=== PATIENT | male | born 1990 | race Caucasian/White ===

== ENCOUNTER → 2021-09-27 | Outpatient (CLI) | payer BC | END | disposition home or self-care (01) | LOC: LABWHC1 16:16 | PROVIDERS: ATTEND Obstetrics & Gynecology Obstetrics | DX: Z31.441 Encounter for testing of male partner of patient with recurrent pregnancy loss (principal) | CPT/HCPCS: 36415 ==

== ENCOUNTER → 2021-11-24 | Outpatient (CLI) | payer BC ==
--- NOTE | 2021-11-24 15:31 | MR ---
EXAMINATION TYPE: MR shoulder LT wo con DATE OF EXAM: 11/24/2021 COMPARISON: Radiographs 11/07/2021 HISTORY: 31-year-old male M25.512, Left shoulder pain and limited movement for 11 years. TECHNIQUE: Multiplanar, multisequence imaging of the left shoulder is performed without contrast. FINDINGS: There is some minimal intrinsic signal within the intracapsular portion of the long head biceps tendo n. Mild fluid along the bicipital groove. The majority of the subscapularis tendon appears intact. Borderline thickening of the coracohumeral ligament at 3 mm with some strandy soft tissue signal inte nsity in the rotator cuff interval. No abnormal thickening of the axillary recess. There is mild degenerative change at the AC joint with a mild capsular edema and minimal subchondral edema. No significant marginal spurring. No significant mass effect on the underlying myotendinous ju nction of the supraspinatus. No significant distention or thickening of the subacromial/subdeltoid bursa. Both supraspinatus and infraspinatus tendons are intact. No rotator cuff muscle atrophy. The glenohumeral joint is intact. No significant joint effusion. No discrete labral tear given on the radiographic technique and no para labral cyst. No Hill-Sachs deformity or os acromiale. No suspicious bone marrow replacement. IMPRESSION: 1. Some intracapsular long head biceps tendinosis. There is borderline thickening of the coracohumera l ligament just adjacent and some strandy soft tissue signal in the rotator cuff interval. Findings m ay reflect sequela of prior biceps emma sprain. Fluid along the bicipital groove may be physiologic or could reflect a corresponding mild long head biceps tenosynovitis. 2. Mild, early degenerative change at the AC joint. 3. No labral or rotator cuff tear is seen.
== END | disposition home or self-care (01) ==
LOC: RADMRIMAIN 13:47
PROVIDERS: ATTEND Orthopaedic Surgery
DX: M19.012 Primary osteoarthritis, left shoulder (principal)

== ENCOUNTER 2022-09-26 23:04 | Observation (INO) | payer BC ==
[2022-09-27 00:12] LABS: Appearance,Urine Clear (Clear); Bilirubin,Urine Negative (Negative); Blood,Urine Negative (Negative); Color,Urine Yellow; Glucose,Urine (UA) Negative (Negative); Ketones,Urine Negative (Negative); Leukocyte Esterase,Urine Negative (Negative); Nitrite,Urine Negative (Negative); PH, Urine 6.5 (5.0-8.0); Protein,Urine Negative (Negative); Specific Gravity,Urine 1.027 (1.001-1.035); Urobilinogen,Urine <2.0 mg/dL (<2.0)
[2022-09-27] MEDS ORDERED: KETOROLAC 15 MG/ML 1 ML VIAL IVP STA (00:22)
[2022-09-27] MEDS ORDERED: SODIUM CHLORIDE 0.9% 1,000 ML IV STA ×2 (00:22→02:23)
[2022-09-27 00:49] LABS: Basophils % (A) 0 %; Eosinophils # (A) 0.1 k/uL (0-0.7); Eosinophils % (A) 1 %; HCT 44.9 % (39.0-53.0); HGB 15.1 gm/dL (13.0-17.5); Lymphocytes % (A) 16 %; MCHC 33.6 g/dL (31.0-37.0); MCV 86.3 fL (80.0-100.0); Monocytes # (A) 0.7 k/uL (0-1.0); Monocytes % (A) 6 %; Neutrophils # (A) 9.5 k/uL (1.3-7.7); Neutrophils % (A) 77 %; Platelet Count 285 k/uL (150-450); RDW 11.9 % (11.5-15.5); WBC 12.4 k/uL (3.8-10.6)
[2022-09-27 01:04] LABS: INR 0.9 (<1.2); Partial Thromboplastin Time 28.4 sec (22.0-30.0); Prothrombin Time 9.7 sec (9.0-12.0)
[2022-09-27 01:16] LABS: ALT 54 U/L (4-49); AST 35 U/L (17-59); African American GFR (CKD) >90 (>60 ml/min/1.73 sqM); Albumin 4.3 g/dL (3.5-5.0); Alkaline Phosphatase 68 U/L (38-126); Amylase 41 U/L (30-110); Anion Gap 10 mmol/L; Blood Urea Nitrogen 19 mg/dL (9-20); Carbon Dioxide 26 mmol/L (22-30); Chloride 103 mmol/L (98-107); Glucose 99 mg/dL (74-99); Lipase 36 U/L (23-300); Non-African American GFR(CKD) >90 (>60 ml/min/1.73 sqM); Potassium 3.8 mmol/L (3.5-5.1); Sodium 139 mmol/L (137-145); Total Bilirubin 0.5 mg/dL (0.2-1.3); Total Protein 7.1 g/dL (6.3-8.2)
--- NOTE | 2022-09-27 01:17 | US ---
EXAM: US Retroperitoneal Limited, Renal CLINICAL HISTORY: Right flank pain TECHNIQUE: Real-time limited ultrasound of the retroperitoneum with image documentation. COMPARISON: No relevant prior studies available. FINDINGS: Right kidney: The right kidney measures 10.1 x 5.2 x 4.8 cm. No hydronephrosis or nephrolithiasis. There is an ovoid hyperechoic area involving the midpole of the right kidney measuring 1.5 x 1.5 x 0.8 cm. Left kidney: The left kidney measures 11.7 x 6.1 x 5.4 cm. No stones. No hydronephrosis. Bladder: The bladder is mildly filled without bladder wall thickening or bladder stones. IMPRESSION: 1. No nephrolithiasis or hydronephrosis identified bilaterally. 2. Presumed incidental ovoid hyperechoic area involving the midpole of the right kidney, as detailed above. 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 Rarely, alternate solid renal lesions may appear hyperechoic. Nonemergent CT evaluation is recommended for further analysis, if not previously evaluated.
--- NOTE | 2022-09-27 01:50 | ED ---
General Adult HPI - General Chief complaint: Abdominal Pain Stated complaint: possible appendicitus Time Seen by Provider: 09/27/22 00:07 Source: patient, RN notes reviewed, old records reviewed Mode of arrival: ambulatory Limitations: no limitations - History of Present Illness Initial comments: Patient is a 32-year-old male with past medical history that is unremarkable who presents emergency Department with right lower quadrant abdominal pain. Since being in his right flank. Sudden onset earlier today. Worse with movement. Denies nausea, vomiting, urinary complaints. Denies any diarrhea. Denies fevers, chest pain, shortness of breath. No other acute complaints at this time. No prior abdominal surgeries. Presents for further evaluation at this time. - Related Data Allergies Allergy/AdvReac Type Severity Reaction Status Date / Time No Known Allergies Allergy Verified 09/26/22 23:14 Review of Systems ROS Statement: Those systems with pertinent positive or pertinent negative responses have been documented in the HPI. Review of Systems: CONST: Denies fever EYES: Denies blurry vision ENT: Denies nasal congestion C/V: Denies Chest pain RESP: Denies shortness of breath GI: Endorses abdominal pain : Denies dysuria SKIN: Denies rash. MSK: Denies joint pain. NEURO: Denies headache ROS Other: All systems not noted in ROS Statement are negative. Past Medical History Past Medical History: No Reported History History of Any Multi-Drug Resistant Organisms: None Reported Past Surgical History: No Surgical Hx Reported Past Psychological History: No Psychological Hx Reported Smoking Status: Never smoker Past Alcohol Use History: Rare Past Drug Use History: None Reported General Exam - General Exam Comments Initial Comments: General: Appears in no acute distress. HEAD: Normal with no signs of head trauma. EYES: PERRLA, EOMI, conjunctiva normal, no discharge. ENT: Hearing grossly intact, normal oropharynx. RESPIRATORY: Clear breath sounds bilaterally. No wheezes, rales, or rhonchi. C/V: Regular rate and rhythm. S1 and S2 auscultated, no edema, peripheral pulses 2+ and intact throughout ABD: Abdomen is soft, nondistended. Tender to palpation in the right flank, mild tenderness in the right lower quadrant. No guarding. No peritoneal signs. No CVA tenderness to percussion. EXT: Normal range of motion, no obvious deformity SKIN: No rashes or lesions observed on exposed skin. NEURO: Alert and oriented 4. Limitations: no limitations Course Vital Signs 09/26/22 23:15 Temperature 98.2 F Pulse Rate 89 Respiratory 18 Rate Blood Pressure 139/87 O2 Sat by Pulse 98 Oximetry Medical Decision Making - Medical Decision Making Was pt. sent in by a medical professional or institution (, PA, MEDICAL SCREENER, urgent care, hospital, or custodial...) When possible be specific @ -No Did you speak to anyone other than the patient for history (EMS, parent, family, police, friend...)? What history was obtained from this source @ -No Did you review nursing and triage notes (agree or disagree)? Why? @ -I reviewed and agree with nursing and triage notes Were old charts reviewed (outside hosp., previous admission, EMS record, old EKG, old radiological studies, urgent care reports/EKG's, custodial records)? Report findings @ -No old charts were reviewed Differential Diagnosis (chest pain, altered mental status, abdominal pain women, abdominal pain men, vaginal bleeding, weakness, fever, dyspnea, syncope, headache, dizziness, GI bleed, back pain, seizure, CVA, palpatations, mental health, musculoskeletal)? @ -Differential Abdominal Pain Men: Appendicitis, cholecystitis, diverticulosis, ischemic bowel, pancreatitis, hepatitis, UTI, gastroenteritis, AAA, incarcerated hernia, bowel obstruction, constipation, inflammatory bowel, hepatitis, peptic ulcer disease, splenic i nfarction, perforated viscus, testicular torsion, this is not meant to be an all-inclusive list EKG interpreted by me (3pts min.). @ -As above X-rays interpreted by me (1pt min.). @ -None done CT interpreted by me (1pt min.). @ -CT shows findings consistent with the right-sided kidney mass which radiology is reading as a benign angiomamyolipoma. Patient also has an enlarged appendix, concerning for possible early appendicitis. U/S interpreted by me (1pt. min.). @ -Interpreted by radiology. Ultrasound of the bladder and kidneys unremarkable for hydronephrosis. Does show findings concerning for a possible mass on the right kidney. Recommend CT eval for further evaluation. What testing was considered but not performed or refused? (CT, X-rays, U/S, labs)? Why? @ -None What meds were considered but not given or refused? Why? @ -None Did you discuss the management of the patient with other professionals (professionals i.e. DrRaymond, PA, MEDICAL SCREENER, lab, RT, psych nurse, director social, phys therapist, teacher, commercial escrow officer, classification case manager)? Give summary @ -I spoke with Dr. Nettles who accepted the patient onto her service. Patient will be admitted to observation. Was smoking cessation discussed for >3mins.? @ -No Was critical care preformed (if so, how long)? @ -No Were there social determinants of health that impacted care today? How? (Ho melessness, low income, unemployed, alcoholism, drug addiction, transportation, low edu. Level, literacy, decrease access to med. care, skilled nursing, rehab)? @ -No Was there de-escalation of care discussed even if they declined (Discuss DNR or withdrawal of care, Hospice)? DNR status @ -No What co-morbidities impacted this encounter? (DM, HTN, Smoking, COPD, CAD, Cancer, CVA, ARF, Chemo, Hep., AIDS, mental health diagnosis, sleep apnea, morbid obesity)? @ -None Was patient admitted / discharged? Hospital course, mention meds given and route, prescriptions, significant lab abnormalities, going to OR and other pertinent info. @ -Based on the patient's presentation and physical exam, concern for an acute intra-abdominal process for his current symptoms. We will obtain abdominal labs as well as an ultrasound start. He'll be symptomatically treated with IV fluids and Toradol. He was in agreement this plan. Ultrasound shows a incidental kidney mass another findings. Patient's labs are remarkable for mild leukocytosis of 12.4. Remainder labs are within acceptable limits. I updated the patient. He is still having pain. At this time we did agree to obtain a CT on pelvis. He was in agreement this plan. Declines additional pain medications at this time. CT reveals the diagnosis of angiomyolipoma. Also concerning for early appendicitis. I gave the patient. At this time he was made nothing by mouth, started on empiric antibiotics. We will admit him for monitoring and evaluation by surgery. I did discuss the case with on-call surgery Dr. Nettles who accepted the patient. Patient was in agreement with this plan. Undiagnosed new problem with uncertain prognosis? @ -No Drug Therapy requiring intensive monitoring for toxicity (Heparin, Nitro, Insulin, Cardizem)? @ -No Were any procedures done? @ -No Diagnosis/symptom? @ -Abdominal pain, concern for appendicitis Acute, or Chronic, or Acute on Chronic? @ -Acute Uncomplicated (without systemic symptoms) or Complicated (systemic symptoms)? @ -Complicated Side effects of treatment? @ -none Exacerbation, Progression, or Severe Exacerbation] @ -no Poses a threat to life or bodily function? @ -Yes, if the infection worsens can result in significant morbidity and mortality. Diagnosis/symptom? @ -Right renal angiomyolipoma Acute, or Chronic, or Acute on Chronic? @ -Acute Uncomplicated (without systemic symptoms) or Complicated (systemic symptoms)? @ -Uncomplicated Side effects of treatment? @ -none Exacerbation, Progression, or Severe Exacerbation] @ -no Poses a threat to life or bodily function? @ -no - Lab Data Result diagrams: 09/27/22 00:30 09/27/22 00:30 Lab Results 09/26/22 09/27/22 09/27/22 Range/Units 23:56 00:30 00:30 WBC 12.4 H (3.8-10.6) k/uL RBC 5.20 (4.30-5.90) m/uL Hgb 15.1 (13.0-17.5) gm/dL Hct 44.9 (39.0-53.0) % MCV 86.3 (80.0-100.0) fL MCH 29.0 (25.0-35.0) pg MCHC 33.6 (31.0-37.0) g/dL RDW 11.9 (11.5-15.5) % Plt Count 285 (150-450) k/uL MPV 7.0 Neutrophils % 77 % Lymphocytes % 16 % Monocytes % 6 % Eosinophils % 1 % Basophils % 0 % Neutrophils # 9.5 H (1.3-7.7) k/uL Lymphocytes # 2.0 (1.0-4.8) k/uL Monocytes # 0.7 (0-1.0) k/uL Eosinophils # 0.1 (0-0.7) k/uL Basophils # 0.0 (0-0.2) k/uL PT (9.0-12.0) sec INR (<1.2) APTT (22.0-30.0) sec Sodium 139 (137-145) mmol/L Potassium 3.8 (3.5-5.1) mmol/L Chloride 103 (98-107) mmol/L Carbon Dioxide 26 (22-30) mmol/L Anion Gap 10 mmol/L BUN 19 (9-20) mg/dL Creatinine 0.63 L (0.66-1.25) mg/dL Est GFR (CKD-EPI)AfAm >90 (>60 ml/min/1.73 sqM) Est GFR (CKD-EPI)NonAf >90 (>60 ml/min/1.73 sqM) Glucose 99 (74-99) mg/dL Calcium 9.0 (8.4-10.2) mg/dL Total Bilirubin 0.5 (0.2-1.3) mg/dL AST 35 (17-59) U/L ALT 54 H (4-49) U/L Alkaline Phosphatase 68 (38-126) U/L Total Protein 7.1 (6.3-8.2) g/dL Albumin 4.3 (3.5-5.0) g/dL Amylase 41 (30-110) U/L Lipase 36 (23-300) U/L Urine Color Yellow Urine Appearance Clear (Clear) Urine pH 6.5 (5.0-8.0) Ur Specific Norman 1.027 (1.001-1.035) Urine Protein Negative (Negative) Urine Glucose (UA) Negative (Negative) Urine Ketones Negative (Negative) Urine Blood Negative (Negative) Urine Nitrite Negative (Negative) Urine Bilirubin Negative (Negative) Urine Urobilinogen <2.0 (<2.0) mg/dL Ur Leukocyte Esterase Negative (Negative) 09/27/22 Range/Units 00:30 WBC (3.8-10.6) k/uL RBC (4.30-5.90) m/uL Hgb (13.0-17.5) gm/dL Hct (39.0-53.0) % MCV (80.0-100.0) fL MCH (25.0-35.0) pg MCHC (31.0-37.0) g/dL RDW (11.5-15.5) % Plt Count (150-450) k/uL MPV Neutrophils % % Lymphocytes % % Monocytes % % Eosinophils % % Basophils % % Neutrophils # (1.3-7.7) k/uL Lymphocytes # (1.0-4.8) k/uL Monocytes # (0-1.0) k/uL Eosinophils # (0-0.7) k/uL Basophils # (0-0.2) k/uL PT 9.7 (9.0-12.0) sec INR 0.9 (<1.2) APTT 28.4 (22.0-30.0) sec Sodium (137-145) mmol/L Potassium (3.5-5.1) mmol/L Chloride (98-107) mmol/L Carbon Dioxide (22-30) mmol/L Anion Gap mmol/L BUN (9-20) mg/dL Creatinine (0.66-1.25) mg/dL Est GFR (CKD-EPI)AfAm (>60 ml/min/1.73 sqM) Est GFR (CKD-EPI)NonAf (>60 ml/min/1.73 sqM) Glucose (74-99) mg/dL Calcium (8.4-10.2) mg/dL Total Bilirubin (0.2-1.3) mg/dL AST (17-59) U/L ALT (4-49) U/L Alkaline Phosphatase (38-126) U/L Total Protein (6.3-8.2) g/dL Albumin (3.5-5.0) g/dL Amylase (30-110) U/L Lipase (23-300) U/L Urine Color Urine Appearance (Clear) Urine pH (5.0-8.0) Ur Specific Norman (1.001-1.035) Urine Protein (Negative) Urine Glucose (UA) (Negative) Urine Ketones (Negative) Urine Blood (Negative) Urine Nitrite (Negative) Urine Bilirubin (Negative) Urine Urobilinogen (<2.0) mg/dL Ur Leukocyte Esterase (Negative) Disposition Clinical Impression: Abdominal pain, Angiomyolipoma of right kidney Narrative: concern for early appendicitis Disposition: ADMITTED IP TO THIS [facility] Condition: Stable Time of Disposition: 02:09
--- NOTE | 2022-09-27 02:03 | CT ---
EXAM: CT Abdomen and Pelvis With Intravenous Contrast CLINICAL HISTORY: Right flank/lq abd pain TECHNIQUE: Axial computed tomography images of the abdomen and pelvis with intravenous contrast. CTDI is 22 mGy and DLP is 1252 mGy-cm. This CT exam was performed using one or more of the following dose reduction techniques: automated exposure control, adjustment of the mA and/or kV according to patient size, and/or use of iterative reconstruction technique. COMPARISON: Renal ultrasound performed earlier 00 49 hours FINDINGS: Lung bases: Unremarkable. No mass. No consolidation. ABDOMEN: Liver: Unremarkable. No mass. Gallbladder and bile ducts: Unremarkable. No calcified stones. No ductal dilation. Pancreas: Unremarkable. No mass. No ductal dilation. Spleen: Unremarkable. No splenomegaly. Adrenals: Unremarkable. No mass. Kidneys and ureters: The kidneys demonstrate normal enhancement. No hydronephrosis or definite ureteral stones. An ovoid hypoechoic area along the posterior medial aspect of the mid-upper pole of the right kidney measuring 18 mm demonstrates negative Hounsfield units without abnormal internal enhancement. A rounded punctate subcentimeter calcification is noted in the right renal parenchyma along the posterior margin of the angiomyolipoma. Stomach and bowel: No bowel obstruction. No asymmetric bowel mucosal abnormality. No significant diverticulosis. Mild stool burden. PELVIS: Appendix: The proximal appendix is prominent in size, measuring 9 mm along the posterior lateral aspect of the cecum. The distal appendix is normal in caliber. No obvious periappendiceal fat stranding. Bladder: Unremarkable. No mass. Reproductive: Unremarkable as visualized. ABDOMEN and PELVIS: Intraperitoneal space: Unremarkable. No free air. No significant fluid collection. Bones/joints: No acute fracture. No dislocation. Soft tissues: Unremarkable. Vasculature: Unremarkable. No abdominal aortic aneurysm. Lymph nodes: Unremarkable. No enlarged lymph nodes. IMPRESSION: 1. The proximal appendix is prominent in size, measuring 9 mm along the posterior lateral aspect of the cecum. The distal appendix is normal in caliber. No obvious periappendiceal fat stranding. While this may represent atypical variation, please correlate clinically for potential subtle developing acute appendicitis. 2. An ovoid hypoechoic area along the posterior medial aspect of the mid- upper pole of the right kidney measuring 18 mm demonstrates negative Hounsfield units without abnormal internal enhancement. This corresponds with the hyperechoic area noted on the previous ultrasound examination and is most consistent with an incidental angiomyolipoma. 3. The kidneys otherwise demonstrate normal enhancement. No hydronephrosis or definite ureteral stones. No bladder calcifications or bladder wall thickening.
[2022-09-27] MEDS ORDERED: KETOROLAC 15 MG/ML 1 ML VIAL IVP PRN (02:24)
[2022-09-27] MEDS ORDERED: NALOXONE 0.4 MG/ML 1 ML VIAL IV PRN (02:24)
[2022-09-27] MEDS ORDERED: ONDANSETRON 4 MG/2 ML VIAL IVP PRN (02:24)
[2022-09-27] MEDS: PIPERACILLIN-TAZOBACTAM 3.375 GM in SODIUM CHLORIDE 0.9% 100 ML IVPB SCH ×3 (02:55→18:43)
--- NOTE | 2022-09-27 09:51 | P.GSHP ---
History of Present Illness H&P Date: 09/27/22 CHIEF COMPLAINT: Right lower quadrant abdominal pain HISTORY OF PRESENT ILLNESS: This is a 32-year-old male who presented to hospital with complaints of right lower quadrant abdominal pain that started yesterday around 8 PM. Patient reports initially he had just generalized pain in the abdomen and then it moved down to the right lower quadrant and stayed there. He describes the pain as sharp in intensity. He was having nausea. No vomiting. He did have issues with constipation during the day. Denies any fevers chills or sweats. Denies any prior abdominal surgical history. Denies any significant medical history. Computed tomography scan abdomen and pelvis showing proximal appendix is prominent in size measuring 9 mm along the posterior lateral aspect of the cecum. The distal appendix is normal in caliber. No obvious fe- appendiceal fat stranding. This may represent atypical variation. Please correlate for potential developing acute appendicitis. Patient started on IV antibiotics and was admitted to surgical service for acute appendicitis. PAST MEDICAL HISTORY: See list. PAST SURGICAL HISTORY: See list. MEDICATIONS: See list. ALLERGIES: See list. SOCIAL HISTORY: No illicit drug use. Denies smoking. Denies alcohol use. REVIEW OF SYSTEMS: CONSTITUTIONAL: Denies fever or chills. HEENT: Denies blurred vision, vision changes, or eye pain. Denies hemoptysis ENDOCRINE: Denies heat or cold intolerance. CARDIOVASCULAR: Denies chest pain or pressure. RESPIRATORY: No shortness of breath. GASTROINTESTINAL: Denies abdominal pain. Denies nausea or vomiting. NEURO: Denies history of seizures. PSYCH: No depression or suicidal ideation HEMATOLOGIC: Denies bleeding disorders. LYMPHATIC: The patient denies any lumps and bumps around the neck. GENITOURINARY: Denies any blood in urine or increased urinary frequency. MUSCULOSKELETAL: Denies myalgias. Denies joint swelling. Denies decreased range of motion beyond patients baseline. SKIN: Denies pruitis. Denies rash. PHYSICAL EXAM: VITAL SIGNS: Reviewed GENERAL: Well-developed in no acute distress. HEENT: No sclera icterus. Extraocular movements grossly intact. Moist buccal mucosa. Head is atraumatic, normocephalic. Hears conversational speech. No nasal drainage. NECK: Supple without lymphadenopathy. CHEST: Non-labored respirations and equal bilateral excursions. CARDIOVASCULAR: Palpable 2+ radial pulses. ABDOMEN: Soft. Nondistended. Tenderness with palpation right lower quadrant MUSCULOSKELETAL: No clubbing or cyanosis. NEUROLOGIC: No focal or lateralizing signs. Cranial nerves II through XII grossly intact. PSYCH: Appropriate affect. Alert and oriented to person, place and time. SKIN: Well perfused. Good skin turgor. LABORATORY DATA: WBC is 12.4 Hgb 15.1 and platelets 285 Sodium is 139 potassium 3.8 creatinine 0.63 Total bili 0.5 AST 35 ALT slightly elevated 54 alk phos 68 lipase 36 Urinalysis negative for infection. IMAGING: Computed tomography scan abdomen and pelvis the proximal appendix is prominent in size measuring 9 mm along the posterior lateral aspect of the cecum. The distal appendix is normal in caliber. No obvious fe-appendiceal fat stranding. We'll this may represent atypical variation. Please correlate for potential developing acute appendicitis. An ovoid hypoechoic area along the posterior medial aspect of the mid upper pole right kidney measuring 8 mm demonstrates negative house Field units without abnormal internal enhancement. This corresponds with previous ultrasound exam and is consistent with incidental angiomyolipoma. The kidneys otherwise them straight normal enhancement. No hydronephrosis or definite ureteral stones. No bladder calcifications or bladder wall thickening. ASSESSMENT: 1. Acute appendicitis 2. Possible incidental angiomyolipoma of the right kidney PLAN: -Patient scheduled for Robotic appendectomy today with Dr. Nettles -Keep patient nothing by mouth -Continue IV antibiotics -Continue IV fluid -Continue supportive care Physician Newborn Hearing Screener note has been reviewed by physician. Signing provider agrees with the documented findings, assessment, and plan of care. Past Medical History Past Medical History: No Reported History History of Any Multi-Drug Resistant Organisms: None Reported Past Surgical History: No Surgical Hx Reported Past Psychological History: No Psychological Hx Reported Smoking Status: Never smoker Past Alcohol Use History: Rare Past Drug Use History: None Reported Medications and Allergies Home Medications Medication Instructions Recorded Confirmed Type No Known Home Medications 09/27/22 09/27/22 History Allergies Allergy/AdvReac Type Severity Reaction Status Date / Time No Known Allergies Allergy Verified 09/27/22 07:00 Surgical - Exam Vital Signs Temp Pulse Resp BP Pulse Ox 98.2 F 89 18 139/87 98 09/26/22 23:15 09/26/22 23:15 09/26/22 23:15 09/26/22 23:15 09/26/22 23:15 Results - Labs 09/27/22 00:30 09/27/22 00:30 Abnormal Lab Results - Last 24 Hours (Table) 09/27/22 09/27/22 Range/Units 00:30 00:30 WBC 12.4 H (3.8-10.6) k/uL Neutrophils # 9.5 H (1.3-7.7) k/uL Creatinine 0.63 L (0.66-1.25) mg/dL ALT 54 H (4-49) U/L Diabetes panel 09/27/22 Range/Units 00:30 Sodium 139 (137-145) mmol/L Potassium 3.8 (3.5-5.1) mmol/L Chloride 103 (98-107) mmol/L Carbon Dioxide 26 (22-30) mmol/L BUN 19 (9-20) mg/dL Creatinine 0.63 L (0.66-1.25) mg/dL Glucose 99 (74-99) mg/dL Calcium 9.0 (8.4-10.2) mg/dL AST 35 (17-59) U/L ALT 54 H (4-49) U/L Alkaline Phosphatase 68 (38-126) U/L Total Protein 7.1 (6.3-8.2) g/dL Albumin 4.3 (3.5-5.0) g/dL Calcium panel 09/27/22 Range/Units 00:30 Calcium 9.0 (8.4-10.2) mg/dL Albumin 4.3 (3.5-5.0) g/dL Pituitary panel 09/27/22 Range/Units 00:30 Sodium 139 (137-145) mmol/L Potassium 3.8 (3.5-5.1) mmol/L Chloride 103 (98-107) mmol/L Carbon Dioxide 26 (22-30) mmol/L BUN 19 (9-20) mg/dL Creatinine 0.63 L (0.66-1.25) mg/dL Glucose 99 (74-99) mg/dL Calcium 9.0 (8.4-10.2) mg/dL Adrenal panel 09/27/22 Range/Units 00:30 Sodium 139 (137-145) mmol/L Potassium 3.8 (3.5-5.1) mmol/L Chloride 103 (98-107) mmol/L Carbon Dioxide 26 (22-30) mmol/L BUN 19 (9-20) mg/dL Creatinine 0.63 L (0.66-1.25) mg/dL Glucose 99 (74-99) mg/dL Calcium 9.0 (8.4-10.2) mg/dL Total Bilirubin 0.5 (0.2-1.3) mg/dL AST 35 (17-59) U/L ALT 54 H (4-49) U/L Alkaline Phosphatase 68 (38-126) U/L Total Protein 7.1 (6.3-8.2) g/dL Albumin 4.3 (3.5-5.0) g/dL
[2022-09-27] MEDS ORDERED: DEXAMETHASONE SOD PHOS (MDV) 100 MG/10 ML VIAL ONE (22:57)
[2022-09-27] MEDS ORDERED: ONDANSETRON 4 MG/2 ML VIAL ONE (22:57)
[2022-09-27] MEDS ORDERED: GLYCOPYRROLATE 0.2 MG/ML 2 ML VIAL ONE (22:57)
[2022-09-27] MEDS ORDERED: VECURONIUM 10 MG VIAL IV ONE (22:57)
[2022-09-27] MEDS ORDERED: LIDOCAINE 2% INJ 20 MG/ML (2 ML VIAL) ONE (22:57)
[2022-09-27] MEDS ORDERED: LACTATED RINGERS 1,000 ML IV ONE (22:57)
[2022-09-27] MEDS ORDERED: NEOSTIGMINE 1 MG/ML 10 ML VIAL ONE (22:57)
[2022-09-27] MEDS ORDERED: PROPOFOL 10 MG/ML 20 ML VIAL IV ONE (22:57)
[2022-09-27] MEDS ORDERED: MIDAZOLAM 2 MG/2 ML VIAL ONE (22:57)
[2022-09-27] MEDS ORDERED: KETOROLAC 15 MG/ML 1 ML VIAL ONE (22:57)
[2022-09-27] MEDS ORDERED: fentaNYL (PF) 50 MCG/ML 2 ML AMP ONE (22:57)
[2022-09-27] MEDS ORDERED: BUPIVACAINE (PF) 0.25% 30 ML VIAL SQ ONE (23:05)
[2022-09-27] MEDS ORDERED: HYDROmorphone 1 MG/ML 1 ML SYRINGE IVP PRN (23:54)
--- NOTE | 2022-09-27 23:54 | P.OP ---
Date of Procedure: 09/27/22 Description of Procedure: SURGEON: KEEGAN PONCE MD Preoperative Diagnosis: 1. Acute appendicitis Postoperative Diagnosis: 1. Acute appendicitis Procedure(s) Performed: 1. Robotic-assisted daVinci Xi laparoscopic appendectomy Anesthesia: GETA, local Estimated Blood Loss (ml): 5 Pathology: other (appendix) Condition: stable Disposition: floor Operative Findings: 1. Acute appendicitis without rupture without periappendicitis 2. Terminal ileum unremarkable 3. Cecum unremarkable INDICATIONS: The patient is a 32-year-old male who presents with acute appendicitis. Benefits and risks, including infection, open surgery, and bleeding for additional surgery was discussed at length. Informed consent was obtained. All questions of the patient and family were answered. DESCRIPTION: The patient was transferred to the operating room and placed in supine position. The patient had previously voided. The abdomen was then prepped and draped in standard sterile fashion as Ioban was placed along the abdomen to minimize any contamination of skin floor. After a timeout protocol was performed, attention was then brought to the left upper quadrant whereby a 0 degree 5 mm laparoscopic trocar entry was performed. The abdominal cavity was entered and insufflated to 12 mmHg pressure, which was tolerated well. Diagnostic laparoscopy demonstrated no injury to bowel, viscera or mesentery. Next a robotic 8-mm trocar was placed along the left lower quadrant, 10-cm lateral to the midline. A 12 mm port was placed along the left upper quadrant and another 8-mm port left lateral abdominal wall. Ports were placed 8 cm apart from each other including 15-20 cm away from the target anatomy of the right pelvis. The patient was then placed in Trendelenburg position, at least 7 down and right side up at least 7. The robotic da Tarun XI system was primed and docked from the left side of the patient. Using atraumatic graspers and vessel sealer, the robotic system was docked and primed as described. Instruments were interchanged by the assistant construction superintendent including graspers, robotic stapler and vessel sealer. Next, attention was brought to identify the cecum. A systematic view within the abdominal cavity was started with the small bowel which was unremarkable. The base of the cecum was unremarkable. The body of the appendix was dilated. No perforation was identified. The appendix was dissected free from its surrounding tissues. White 45 mm robotic staple loads were fired along the base of the appendix. The staple line was hemostatic. Hemostasis was checked prior to undocking the robot. The robot was undocked. I re-scrubbed into the case. The specimen was removed from the abdominal cavity with an Endo Catch bag through the 12 mm trocar at the left upper quadrant. All instruments and pneumoperitoneum were evacuated from the abdominal cavity. Local anesthetic was infiltrated to all wounds for postop analgesia. All incisions were also cleansed with diluted hydrogen peroxide. The incisions were closed with 4-0 Monocryl. Exofin glue was applied to the rest of the skin incisions. The patient had tolerated the procedure well. The patient was extubated successfully. The patient was transferred to the postanesthesia care unit in stable condition.
[2022-09-28] MEDS: ACETAMINOPHEN TAB 500 MG TAB PO SCH ×2 (00:41→06:03)
[2022-09-28] MEDS: PIPERACILLIN-TAZOBACTAM 3.375 GM in SODIUM CHLORIDE 0.9% 100 ML IVPB SCH (03:13)
[2022-09-28 08:46] VITALS: BP 93/55; PULSE 60; RESP 16; TEMP 97.7
[2022-09-28] MEDS ORDERED: HEPARIN SODIUM,PORCINE/PF 5,000 UNIT/0.5 ML SYRINGE SQ SCH (09:00)
[2022-09-28 11:03] LABS: Basophils # (A) 0.01 X 10*3/uL (0.00-0.10); Basophils % (A) 0.1 %; Eosinophils # (A) 0 X 10*3/uL (0.04-0.35); Eosinophils % (A) 0 %; HCT 43.6 % (39.6-50.0); HGB 14.5 g/dL (13.0-17.0); Immature Grans, Automated 0.4 %; Lymphocytes # (A) 0.77 X 10*3/uL (0.90-5.00); Lymphocytes % (A) 9.5 %; MCH 28.7 pg (27.0-32.0); MCHC 33.3 g/dL (32.0-37.0); MCV 86.2 fL (80.0-97.0); Mean Platelet Volume 9.9 fL (9.5-12.2); Monocytes # (A) 0.06 X 10*3/uL (0.20-1.00); Monocytes % (A) 0.7 %; NRBC Per 100 WBC 0 /100 WBCS (0.0-0.0); Neutrophils # (A) 7.25 X 10*3/uL (1.80-7.70); Neutrophils % (A) 89.3 %; Platelet Count 306 X 10*3/uL (140-440); RBC 5.06 X 10*6/uL (4.40-5.60); RDW 11.7 % (11.5-14.5); WBC 8.12 X 10*3/uL (4.50-10.00)
[2022-09-28 11:16] LABS: African American GFR (CKD) 126.2 (60.0-200.0); Anion Gap 8.5 mmol/L (10.00-18.00); BUN/Creat Ratio 14.42 Ratio (12.00-20.00); Blood Urea Nitrogen 13.5 mg/dL (9.0-27.0); Calcium 9.3 mg/dL (8.7-10.3); Carbon Dioxide 24.5 mmol/L (20.0-27.5); Non-African American GFR(CKD) 108.9 (60.0-200.0); Potassium 4.6 mmol/L (3.5-5.5)
== END 2022-09-28 12:19 | disposition home or self-care (01) ==
LOC: EC 23:04 → 6NMEDSUR 09-27 02:24
PROVIDERS: ADMIT Surgery Plastic and Reconstructive Surgery; ATTEND Surgery Plastic and Reconstructive Surgery
DX: K35.80 Unspecified acute appendicitis (principal); K59.00 Constipation, unspecified; F17.290 Nicotine dependence, other tobacco product, uncomplicated
CPT/HCPCS: 44970; S2900; 36415; 74177; 76770; 80048; 80053; 81003; 82150; 83690; 85025; 85610; 85730; 88304; 96361; 96374; 99285